=== PATIENT | female | born 1945 | race Caucasian/White ===

== ENCOUNTER 2018-12-20 10:02 | Outpatient (CLI) | payer MEDICARE, MEDICAID | END 2018-12-20 10:03 | disposition home or self-care (01) | LOC: RAD 10:02 ==

== ENCOUNTER → 2019-01-04 | Outpatient (CLI) | payer MEDICARE, MEDICAID | LOC: RAD 10:54 ==

== ENCOUNTER 2019-03-20 09:55 | Observation (INO) | payer MEDICARE, MEDICAID ==
--- NOTE | 2019-03-20 10:47 | ED PDOC ---
Arrival/HPI - General Historian: Patient - History of Present Illness Narrative History of Present Illness (Text): 03/20/19 10:43 CC: chest pain HPI: 73 yo female w/ PMH of HTN and Lupus comes to ED for evaluation of chest pain, dizziness, and left arm weakness. Patient states that when she awoke today she thought her blood pressure was high. Patient never checked but thought her blood pressure was high. Soon after patient became dizzy and had some arm left arm weakness. Patient states she had 1 episode in the past for which she went to the ED but was discharged. Patient states at this point her arm numbness and dizziness has resolved but still remains with chest pressure. Patient states she only took her home medications. Patient describes the pain as a pressure, loca link on top left of anterior chest wall, constant in nature. Denies fevers, chills, chest pain, sob, n/v, constipation or diarrhea, dysuria, dizziness, lightheadedness, diaphoresis. Time/Duration: 4-6 hours Symptom Onset: Sudden Symptom Course: Improving Quality: Pressure Severity Level: 5 Activities at Onset: Rest Context: Sitting <Melony Thao - Last Filed: 03/20/19 12:24> <Osvaldo James - Last Filed: 03/20/19 12:32> - General Chief Complaint: Chest Pain Time Seen by Provider: 03/20/19 10:12 Past Medical History - Provider Review Nursing Documentation Reviewed: Yes - Infectious Disease Hx of Infectious Diseases: None - Reproductive Menopause: Yes - Cardiac Hx Cardiac Disorders: Yes Hx Hypertension: Yes - Pulmonary Hx Respiratory Disorders: No - HEENT Hx HEENT Disorder: Yes Hx Cataracts: Yes - Endocrine/Metabolic Hx Endocrine Disorders: Yes Hx Systemic Lupus Erythematosus: Yes - Musculoskeletal/Rheumatological Hx Musculoskeletal Disorders: Yes Hx Osteoarthritis: Yes - Psychiatric Hx Substance Use: No - Surgical History Hx Cataract Extraction: Yes (LEFT EYE) Other/Comment: myomectomy - Anesthesia Hx Anesthesia: Yes Hx Anesthesia Reactions: No Hx Malignant Hyperthermia: No <Melony Thao - Last Filed: 03/20/19 12:24> Family/Social History Family/Social History: Hypertension Smoking Status: Never Smoked Hx Alcohol Use: No Hx Substance Use: No <MasterMadaser - Last Filed: 03/20/19 12:24> Allergies/Home Meds <Melony Thao - Last Filed: 03/20/19 12:24> <Osvaldo James - Last Filed: 03/20/19 12:32> Allergies/Adverse Reactions: Allergies No Known Allergies Allergy (Verified 03/07/16 10:37) Home Medications: Home Meds Medication Instructions Recorded Confirmed Diclofenac Sodium 75 mg PO DAILY 03/07/16 03/16/16 Review of Systems - Review of Systems Constitutional: Normal. absent: Fatigue, Weight Change, Fevers Eyes: Normal. absent: Vision Changes, Photophobia, Eye Pain ENT: Normal. absent: Hearing Changes, Tinnitus, TMJ Pain Respiratory: Normal. absent: SOB Cardiovascular: Chest Pain. absent: Normal, Palpitations, Edema Gastrointestinal: Normal. absent: Abdominal Pain, Stool Changes, Constipation, Diarrhea, Nausea, Vomiting Genitourinary Female: Normal. absent: Dysuria, Frequency, Hematuria Musculoskeletal: Normal. absent: Arthralgias, Back Pain, Neck Pain Skin: Normal. absent: Rash, Pruritis, Skin Lesions Neurological: Normal. absent: Headache, Dizziness, Focal Weakness Endocrine: Normal. absent: Diaphoresis, Polyuria, Polydipsia Hemo/Lymphatic: Normal. absent: Adenopathy, Easy Bleeding Psychiatric: Normal. absent: Anxiety, Depression <Melony Thao - Last Filed: 03/20/19 12:24> Physical Exam Vital Signs Reviewed: Yes Vital Signs Temp Pulse Pulse Resp BP Pulse Ox 03/20/19 10:16 87 03/20/19 10:10 98.3 F 90 20 144/69 100 03/20/19 10:04 98.3 F 89 20 144/69 100 Temperature: Afebrile Blood Pressure: Normal Pulse: Regular Respiratory Rate: Normal Appearance: Positive for: Well-Appearing, Non-Toxic, Comfortable Pain Distress: None Mental Status: Positive for: Alert and Oriented X 3 - Systems Exam Head: Present: Atraumatic, Normocephalic Pupils: Present: PERRL Extroacular Muscles: Present: EOMI Mouth: Present: Moist Mucous Membranes Neck: Present: Normal Range of Motion. No: Meningeal Signs, JVD Respiratory/Chest: Present: Clear to Auscultation, Good Air Exchange. No: Respiratory Distress, Accessory Muscle Use Cardiovascular: Present: Regular Rate and Rhythm, Normal S1, S2. No: Murmurs, Tachycardic Abdomen: Present: Normal Bowel Sounds. No: Tenderness, Distention, Peritoneal Signs Upper Extremity: Present: Normal Inspection. No: Cyanosis, Edema Lower Extremity: Present: Normal Inspection. No: Edema Neurological: Present: GCS=15, CN II-XII Intact, Speech Normal Skin: Present: Warm, Dry, Normal Color. No: Rashes Psychiatric: Present: Alert, Oriented x 3, Normal Insight, Normal Concentration <MasterMelony schmidt - Last Filed: 03/20/19 12:24> Vital Signs Temp Pulse Pulse Resp BP Pulse Ox 03/20/19 10:16 87 03/20/19 10:10 98.3 F 90 20 144/69 100 03/20/19 10:04 98.3 F 89 20 144/69 100 <NakiaicoOsvaldo - Last Filed: 03/20/19 12:32> Medical Decision Making ED Course and Treatment: 03/20/19 10:50 Impression 73 yo female w/ PMH of HTN and Lupus comes to ED for evaluation of chest pain, dizziness, and left arm weakness. Plan -CBC -CMP -Troponin -EKG -CXR -Aspirin Prior Visits Prior documentation and lab work reviewed prior to evaluation Progress Notes will re-evaluate patient after lab work results 03/20/19 11:59 lab work reviewed, negative troponin Heart Score: 3 points - Risk of Major Cardiac Event : 0.9-1.7% 03/20/19 12:24 Spoke with Hospitalist, Dr. Baker, who has agreed to accept the patient. Requested CT head. Re-evaluation Time: 12:24 Reassessment Condition: Re-examined, Improved - Lab Interpretations Lab Results: 03/20/19 11:05 03/20/19 11:05 Lab Results 03/20/19 11:05: Sodium 138, Potassium 4.1, Chloride 108 H, Carbon Dioxide 25, Anion Gap 10, BUN 13, Creatinine 0.9, Est GFR ( Amer) > 60, Est GFR (Non- Af Amer) > 60, Random Glucose 88, Calcium 9.3, Total Bilirubin 0.5, AST 31, ALT 20, Alkaline Phosphatase 92, Troponin I < 0.01, Total Protein 7.9, Albumin 3.8, Globulin 4.1, Albumin/Globulin Ratio 0.9 L 03/20/19 11:05: WBC 9.0, RBC 4.25, Hgb 12.7, Hct 38.5, MCV 90.6, MCH 29.9, MCHC 33.0, RDW 13.4, Plt Count 218, MPV 11.3 H, Neut % (Auto) 83.2 H, Lymph % (Auto) 11.8 L, [place] % (Auto) 4.5, Eos % (Auto) 0.3 L, Baso % (Auto) 0.2, Lymph # (Auto) 1.1 L, [place] # (Auto) 0.4, Eos # (Auto) 0.0, Baso # (Auto) 0.02, Absolute Neuts (auto) 7.46 H I have reviewed the lab results: Yes Interpretation: All labs normal - RAD Interpretation Radiology Orders: 03/20/19 10:37 CHEST PORTABLE [RAD] Stat - EKG Interpretation EKG Interpretation (Text): 03/20/19 12:25 EKG: NSR, Normal EKG Interpreted by ED Physician: Yes Type: 12 lead EKG - Medication Orders Current Medication Orders: Discontinued Medications Aspirin (Aspirin) 325 mg PO STAT STA Stop: 03/20/19 10:38 <Melony Thao - Last Filed: 03/20/19 12:24> ED Course and Treatment: 03/20/19 11:17 Seen and examined with the resident. 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 Chest pain dizziness and left upper extremity pain for 2 days intermittently. - RAD Interpretation Radiology Orders: 03/20/19 10:37 CHEST PORTABLE [RAD] Stat - Medication Orders Current Medication Orders: Discontinued Medications Aspirin (Aspirin) 325 mg PO STAT STA Stop: 03/20/19 10:38 Last Admin: 03/20/19 10:52 Dose: 325 mg <Osvaldo James - Last Filed: 03/20/19 12:32> Disposition/Present on Arrival - Present on Arrival Any Indicators Present on Arrival: No History of DVT/PE: No History of Uncontrolled Diabetes: No Urinary Catheter: No History of Decub. Ulcer: No History Surgical Site Infection Following: None - Disposition Have Diagnosis and Disposition been Completed?: Yes Disposition Time: 12:26 Patient Plan: Observation <Melony Thao - Last Filed: 03/20/19 12:24> - Present on Arrival Any Indicators Present on Arrival: No History of DVT/PE: No History of Uncontrolled Diabetes: No Urinary Catheter: No History of Decub. Ulcer: No - Disposition Have Diagnosis and Disposition been Completed?: Yes Patient Plan: Observation <Osvaldo James - Last Filed: 03/20/19 12:32> - Disposition Diagnosis: Chest pain Disposition: HOSPITALIZED Patient Problems: Current Active Problems Problem Status Onset Chest pain Acute Condition: GOOD
[2019-03-20 11:28] LABS: BASO # 0.02 K/mm3 (0.0-2.0); BASO % 0.2 % (0.0-3.0); EOS % 0.3 % (1.5-5.0); HEMOGLOBIN 12.7 g/dL (12.0-16.0); LYMPH # 1.1 (1.2-3.4); LYMPH % 11.8 % (22.0-35.0); MEAN CELL VOLUME 90.6 fl (80.0-105.0); MEAN CORPUSCULAR HEMOGLOBIN 29.9 pg (25.0-35.0); MEAN PLATELET VOLUME 11.3 fl (7.0-11.0); MONO # 0.4 (0.1-0.6); MONO % 4.5 % (1.0-6.0); RBC 4.25 10^6/uL (3.5-6.1); RED CELL DISTRIBUTION WIDTH 13.4 % (11.5-14.5)
[2019-03-20 11:41] LABS: ALB/GLOB RATIO 0.9 (1.1-1.8); ALBUMIN 3.8 g/dL (3.0-4.8); ALT/SGPT 20 U/L (7-56); AST/SGOT 31 U/L (14-36); BLOOD UREA NITROGEN 13 mg/dL (7-21); CALCIUM 9.3 mg/dL (8.4-10.5); GFR NON-AFRICAN AMERICAN > 60
[2019-03-20 11:51] LABS: TROPONIN I < 0.01 ng/mL
--- NOTE | 2019-03-20 13:00 | CT ---
Date of service: 03/20/2019 PROCEDURE: CT HEAD WITHOUT CONTRAST. HISTORY: left arm weakness COMPARISON: None available. TECHNIQUE: Axial computed tomography images were obtained through the head/brain without intravenous contrast. Supplemental Coronal and Sagittal projections created and reviewed. Radiation dose: Total exam DLP = 702.08 mGy-cm. This CT exam was performed using one or more of the following dose reduction techniques: Automated exposure control, adjustment of the mA and/or kV according to patient size, and/or use of iterative reconstruction technique. FINDINGS: HEMORRHAGE: No intracranial hemorrhage. BRAIN: No mass effect or edema. No atrophy or chronic microvascular ischemic changes. VENTRICLES: Unremarkable. No hydrocephalus. CALVARIUM: Lytic lesions within the calvarium. Is there a clinical history of primary neoplasm or myeloma? PARANASAL SINUSES: Unremarkable as visualized. No significant inflammatory changes. MASTOID AIR CELLS: Unremarkable as visualized. No inflammatory changes. OTHER FINDINGS: None. IMPRESSION: No acute intracranial abnormalities. No significant findings to account for the clinical presentation. Lytic calvarial lesions/lucencies. Metastatic disease, myeloma should be considered.
--- NOTE | 2019-03-20 14:03 | CP.PCM.HP ---
<Pedro Quigley - Last Filed: 03/20/19 13:58> History of Present Illness - History of Present Illness History of Present Illness: 73 year old greenlandic-speaking female with past medical history of SLE and HTN presents to the hospital for chest discomfort/pain for the past 5 hours. Patient states she has never had this before. Pain is described as a pressure that radiates to her left arm. It has been intermittent since this morning. There are no exacerbating/alleviating factors. Patient also admits to having a headache and left arm weakness earlier in the day, which has now resolved. Patient is compliant with her medications. Patient denies shortness of breath, nausea, vomiting, diarrhea, fever, chills, numbness, tingling, changes in vision/speech, dysuria. Medical Hx: As above Surgical Hx: Denies Family Hx: HTN Social Hx: Denies alcohol, tobacco, or illicit drug use Allergies: ASA Medications: Hydroxychloroquine, Lisinopril PMD: Dr. Amanda Present on Admission - Present on Admission Any Indicators Present on Admission: No Review of Systems - Review of Systems Review of Systems: 12 point ROS as per HPI, otherwise negative Past Patient History - Infectious Disease Hx of Infectious Diseases: None - Past Medical History & Family History Past Medical History?: Yes - Past Social History Smoking Status: Never Smoked - CARDIAC Hx Cardiac Disorders: Yes Hx Hypertension: Yes - PULMONARY Hx Respiratory Disorders: No - HEENT Hx HEENT Problems: Yes Hx Cataracts: Yes - ENDOCRINE/METABOLIC Hx Endocrine Disorders: Yes Hx Systemic Lupus Erythematosus: Yes - MUSCULOSKELETAL/RHEUMATOLOGICAL Hx Musculoskeletal Disorders: Yes Hx Osteoarthritis: Yes - PSYCHIATRIC Hx Substance Use: No - SURGICAL HISTORY Hx Cataract Extraction: Yes (LEFT EYE) Other/Comment: myomectomy - ANESTHESIA Hx Anesthesia: Yes Hx Anesthesia Reactions: No Hx Malignant Hyperthermia: No Meds Allergies/Adverse Reactions: Allergies Allergy/AdvReac Type Severity Reaction Status Date / Time aspirin Allergy PAIN Verified 03/20/19 16:01 Physical Exam - Constitutional Appears: Non-toxic, No Acute Distress - Head Exam Head Exam: ATRAUMATIC, NORMAL INSPECTION, NORMOCEPHALIC - Eye Exam Eye Exam: EOMI, Normal appearance. absent: Conjunctival injection, Scleral icterus - ENT Exam ENT Exam: Mucous Membranes Moist, Normal Exam - Respiratory Exam Respiratory Exam: Clear to Auscultation Bilateral, NORMAL BREATHING PATTERN. absent: Rales, Rhonchi, Wheezes - Cardiovascular Exam Cardiovascular Exam: RRR, +S1, +S2. absent: Gallop, Rubs, Systolic Murmur - GI/Abdominal Exam GI & Abdominal Exam: Normal Bowel Sounds, Soft. absent: Tenderness - Extremities Exam Extremities exam: Positive for: normal inspection. Negative for: pedal edema, tenderness - Neurological Exam Neurological exam: Alert, CN II-XII Intact, Oriented x3 - Psychiatric Exam Psychiatric exam: Normal Affect, Normal Mood - Skin Skin Exam: Dry, Intact, Normal Color, Warm Results - Vital Signs Recent Vital Signs: Last Vital Signs Temp 98.3 F 03/20/19 10:10 Pulse 87 03/20/19 10:16 Resp 20 03/20/19 10:10 BP 144/69 03/20/19 10:10 Pulse Ox 100 03/20/19 10:10 - Labs Result Diagrams: 03/20/19 11:05 03/20/19 11:05 Labs: Laboratory Results - last 24 hr 03/20/19 03/20/19 11:05 11:05 WBC 9.0 RBC 4.25 Hgb 12.7 Hct 38.5 MCV 90.6 MCH 29.9 MCHC 33.0 RDW 13.4 Plt Count 218 MPV 11.3 H Neut % (Auto) 83.2 H Lymph % (Auto) 11.8 L [place] % (Auto) 4.5 Eos % (Auto) 0.3 L Baso % (Auto) 0.2 Lymph # (Auto) 1.1 L [place] # (Auto) 0.4 Eos # (Auto) 0.0 Baso # (Auto) 0.02 Absolute Neuts (auto) 7.46 H Sodium 138 Potassium 4.1 Chloride 108 H Carbon Dioxide 25 Anion Gap 10 BUN 13 Creatinine 0.9 Est GFR ( Amer) > 60 Est GFR (Non-Af Amer) > 60 Random Glucose 88 Calcium 9.3 Total Bilirubin 0.5 AST 31 ALT 20 Alkaline Phosphatase 92 Troponin I < 0.01 Total Protein 7.9 Albumin 3.8 Globulin 4.1 Albumin/Globulin Ratio 0.9 L Assessment & Plan - Assessment and Plan (Free Text) Plan: 73 year old female with past medical history of SLE and HTN presents with chest pain and left arm weakness. EKG shows NSR. Head CT shows calvarian lytic lesi ons. Patient will be seen by cardiology and have Brain MRI. Chest pain Trend troponins, negative x1 Lipid panel, HgA1c, TSH Plavix for tomorrow as patient is allergic to ASA Echo ordered Cardiology consulted, Dr. Kirk Gill lytic lesions Follow up Brain MRI HTN Continue Lisinopril SLE Continue Hydroxychloroquine PPX Pepcid SCDs Bhagwandin, PGY-3 <Jitendra Baker - Last Filed: 03/22/19 15:17> Results - Vital Signs Recent Vital Signs: Last Vital Signs Temp 97.5 F L 03/21/19 12:00 Pulse 76 03/21/19 14:00 Resp 16 03/21/19 12:00 BP 115/70 03/21/19 12:00 Pulse Ox 98 03/21/19 06:00 - Labs Result Diagrams: 03/21/19 07:00 03/21/19 07:00 Attending/Attestation - Attestation I have personally seen and examined this patient.: Yes I have fully participated in the care of the patient.: Yes I have reviewed all pertinent clinical information: Yes Notes (Text): 03/22/19 15:17 Medical record note made by the resident after discussion with my direction and input after the patient was personally seen and examined by me. I have reviewed the chart and agree that the record accurately reflects by personal performance of the history, physical exam, data review, and medical decision-making, in the course for the patient. I have also personally directed the plan of care.
--- NOTE | 2019-03-20 14:16 | RAD ---
Date of service: 03/20/2019 HISTORY: Chest pain. COMPARISON: No prior. FINDINGS: LUNGS: Patchy multifocal infiltrates accentuated by portable technique and poor inspiratory effort. PLEURA: No significant pleural effusion identified, no pneumothorax apparent. CARDIOVASCULAR: No atherosclerotic calcification present Normal. OSSEOUS STRUCTURES: No significant abnormalities. VISUALIZED UPPER ABDOMEN: Normal. OTHER FINDINGS: None. IMPRESSION: Bilateral lower lobe infiltrates.
[2019-03-20 16:24] VITALS: BMI 24.4
[2019-03-20] MEDS ORDERED: Pneumococcal 23-Valent Vaccine IM ONE (16:24)
--- NOTE | 2019-03-20 17:28 | MRI ---
Date of service: 03/20/2019 PROCEDURE: MRI BRAIN WITHOUT CONTRAST HISTORY: Abnormal head CT scan. COMPARISON: None available. TECHNIQUE: Multiplanar, multisequence MR images of the brain were obtained without intravenous contrast enhancement. FINDINGS: HEMORRHAGE: No acute parenchymal, subarachnoid nor extra-axial hemorrhage. No evidence of hemosiderin deposition identified on gradient echo weighted sequence. DWI: No evidence of an acute or early subacute infarction seen on diffusion imaging.. BRAIN PARENCHYMA: There is a small focal area of increased T2 signal left stephen frontal horn white matter that probably represents minor chronic sequela of small-vessel disease.. There may also be a few additional tiny focal areas of increased T2 signal left cerebral hemisphere nonspecific although possibly representing tiny chronic lacunar-type infarct Mild age-appropriate volume loss. VENTRICLES: No obstructive hydrocephalus. CRANIUM: Previously noted multiple calvarial lucencies appears somewhat serpiginous and may represent vascular grooves and venous lakes. Follow-up limited pre and post-contrast T1 fat-suppressed sequences of the brain recommended if further evaluation is required alternately. Bone scan would not be effective for excluding myeloma however would be helpful to exclude metastatic disease. ORBITS: Changes of bilateral cataract surgery present. PARANASAL SINUSES/MASTOIDS: Changes of bilateral cataract VASCULAR SYSTEM: Visualized major vascular flow voids at skull base patent. OTHER FINDINGS: None. IMPRESSION: No evidence of acute intracranial hemorrhage or infarct. Small focal area of increased T2 signal left stephen frontal horn white matter that probably represents minor chronic sequela of small-vessel disease.. There may also be a few additional tiny focal areas of increased T2 signal left cerebral hemisphere nonspecific although possibly representing tiny chronic lacunar-type infarct Previously noted multiple calvarial lucencies the superior serpiginous and may represent vascular grooves and venous lakes. Follow-up limited pre and post-contrast T1 fat-suppressed sequences of the brain recommended if further evaluation is required alternately. Bone scan would not be effective for excluding myeloma however would be helpful to exclude metastatic disease. Mild age-appropriate volume loss.
[2019-03-20 18:42] LABS: HDL CHOLESTEROL 41 mg/dL (29-60)
[2019-03-20 18:53] LABS: LDL CHOLESTEROL 84 mg/dL (0-129)
[2019-03-20 18:54] LABS: TROPONIN I < 0.01 ng/mL
--- NOTE | 2019-03-20 20:36 | CARD ---
APPROVED REPORT Date of service: 03/20/2019 EKG Measurement Heart [id number] <Conclusion> Normal sinus rhythm Normal ECG
[2019-03-21 06:45] VITALS: O2SAT 98
[2019-03-21 07:16] LABS: HEMOGLOBIN 12.8 g/dL (12.0-16.0); MEAN CELL VOLUME 90.6 fl (80.0-105.0); MEAN CORPUSCULAR HGB CONC 33.2 g/dl (31.0-37.0); MEAN PLATELET VOLUME 11.2 fl (7.0-11.0); RBC 4.26 10^6/uL (3.5-6.1); RED CELL DISTRIBUTION WIDTH 13.5 % (11.5-14.5); WHITE BLOOD COUNT 4.9 10^3/uL (4.5-11.0)
[2019-03-21 07:31] LABS: ALB/GLOB RATIO 0.9 (1.1-1.8); ALBUMIN 3.6 g/dL (3.0-4.8); ALT/SGPT 18 U/L (7-56); AST/SGOT 32 U/L (14-36); BLOOD UREA NITROGEN 14 mg/dL (7-21); CALCIUM 9.2 mg/dL (8.4-10.5); GFR NON-AFRICAN AMERICAN > 60
[2019-03-21 07:37] LABS: TROPONIN I < 0.01 ng/mL
--- NOTE | 2019-03-21 10:26 | CON ---
DATE OF CONSULTATION: 03/21/2019 CARDIOLOGY CONSULTATION HISTORY: The patient is a 73-year-old woman with history of hypertension and lupus erythematosus, who presents with chest pressure. The symptoms have now resolved. The patient is free of cardiac disease in the past. She denies diabetes mellitus, no history of hypercholesterolemia, no previous cardiac history. SOCIAL HISTORY: The patient does not smoke. REVIEW OF SYSTEMS: Fourteen-point review of systems is reviewed in detail. Other than the chest pressure, there are no other cardiac symptoms. PHYSICAL EXAMINATION: VITAL SIGNS: Blood pressure 117/76, the heart rate is in the 60s, normal sinus rhythm. NECK: Negative JVD. LUNGS: Without rales. CARDIAC: Heart rate S1, S2. EXTREMITIES: Without edema. LABORATORY DATA: Hemoglobin is 12.8. Chemistries, BUN and creatinine are unremarkable. Troponins are negative x3. Preliminary echocardiogram reveals good LV function without aortic stenosis. IMPRESSION: 1. Transient chest pressure. 2. No evidence for acute coronary syndrome. 3. History of hypertension. 4. History of lupus erythematosus. PLAN: Given these findings, given that there is no evidence for acute coronary syndrome. We will DC telemetry today. We will arrange for an outpatient stress test. Roscoe Bradley MD
[2019-03-21 12:15] VITALS: BP 115/70; RESP 16; TEMP 97.5
--- NOTE | 2019-03-21 13:21 | CT ---
Date of service: 03/21/2019 PROCEDURE: CT Chest, Abdomen and Pelvis without intravenous contrast HISTORY: rule out neoplasm COMPARISON: None available. TECHNIQUE: Radiation dose: Total exam DLP = 393.3 mGy-cm. This CT exam was performed using one or more of the following dose reduction techniques: Automated exposure control, adjustment of the mA and/or kV according to patient size, and/or use of iterative reconstruction technique. FINDINGS: CT CHEST WITHOUT CONTRAST: LUNGS: No consolidation. There is heterogeneous but extensive ground-glass opacity in the right upper lobe, predominantly posterior segment, and in the right lower lobe and in the superior segment left lower lobe. The left upper lobe appears spared. MEDIASTINUM: Unremarkable. Normal caliber aorta and pulmonary arterial trunk. Normal size heart. LYMPH NODES: Unremarkable. PLEURA: Unremarkable. No pneumothorax. No pleural fluid. BONES: Unremarkable. OTHER FINDINGS: None. CT ABDOMEN AND PELVIS: LIVER: Normal size, contour and attenuation. There is a incomplete curvilinear calcification in the right lobe of the liver measuring approximately 12 mm in diameter. The possibility of calcified high dated cyst should be considered. No other hepatic mass is identified. There is no biliary ductal dilatation. GALLBLADDER AND BILE DUCTS: Unremarkable. PANCREAS: Unremarkable. No gross lesion or ductal dilatation. SPLEEN: Unremarkable. ADRENALS: Unremarkable. No mass. KIDNEYS AND URETERS: Unremarkable. No hydronephrosis. No solid mass. VASCULATURE: There is atherosclerotic calcification of the abdominal aorta. Unremarkable. No aortic aneurysm. BOWEL: Unremarkable. No obstruction. No gross mural thickening. APPENDIX: Normal appendix. PERITONEUM: Unremarkable. No free fluid. No free air. LYMPH NODES: Unremarkable. No enlarged lymph nodes. BLADDER: Unremarkable. REPRODUCTIVE: Normal uterus BONES: No acute fracture. OTHER FINDINGS: None. IMPRESSION: Ground-glass opacity in the right upper lobe and right lower lobe as well as superior segment left lower lobe. Possible infectious etiology. Nonspecific curvilinear calcification noted in the right hepatic lobe. Consider the possibility of calcified head added cyst. No other significant abnormality is identified.
[2019-03-21 16:43] VITALS: PULSE 76
--- NOTE | 2019-03-21 17:19 | CARD ---
APPROVED REPORT Date of service: 03/21/2019 EXAM: Two-dimensional and M-mode echocardiogram with Doppler and color Doppler. INDICATION LVFX 2D DIMENSIONS Left Atrium (2D)3.9 (1.6-4.0cm)IVSd0.8 (0.7-1.1cm) LVDd4.0 (3.9-5.9cm)PWd0.9 (0.7-1.1cm) LVDs2.6 (2.5-4.0cm)FS (%) 34.6 % LVEF (%)64.3 (>50%) M-Mode DIMENSIONS Aortic Root3.00 (2.2-3.7cm)Aortic Cusp Exc.1.60 (1.5-2.0cm) Aortic Valve AoV Peak Dxrdlkqv457.0cm/Radha Peak GR.11mmHgAI P 1/2 [id number] Mitral Valve MV E Ghwflpli42.9cm/sMV A Umojkwgh097.0cm/sE/A ratio0.8 TDI Lateral E' Peak V11.90cm/sMedial E' Peak V6.73cm/sE/Lateral E'7.1 E/Medial E'12.5 Pulmonary Valve PV Peak Bxhaktxq91.8cm/sPV Peak Grad.2mmHg Tricuspid Valve TR Peak Uxijfdiy035ct/sRAP [id number] Peak Gr.43mmHg [id number] LEFT VENTRICLE The left ventricle is normal size. There is normal left ventricular wall thickness. The left ventricular function is normal. The left ventricular ejection fraction is within the normal range. There is normal LV segmental wall motion. Transmitral Doppler flow pattern is Grade I-abnormal relaxation pattern. RIGHT VENTRICLE The right ventricle is normal size. There is normal right ventricular wall thickness. The right ventricular systolic function is normal. ATRIA The left atrium size is normal. The right atrium size is normal. AORTIC VALVE The aortic valve is mildly thickened. There is mild aortic regurgitation. There is no aortic valvular stenosis. MITRAL VALVE The mitral valve is mildly thickened. Mitral regurgitation is mild. There is no mitral valve stenosis. TRICUSPID VALVE The tricuspid valve is normal in structure. There is moderate tricuspid regurgitation. There is moderate pulmonary hypertension. PULMONIC VALVE The pulmonary valve is normal in structure. There is no pulmonic valvular regurgitation. GREAT VESSELS The aortic root is normal in size. The IVC is normal in size and collapses >50% with inspiration. PERICARDIAL EFFUSION There is no pericardial effusion. <Conclusion> There is normal left ventricular wall thickness. The left ventricular function is normal. The left ventricular ejection fraction is within the normal range. There is normal LV segmental wall motion. Transmitral Doppler flow pattern is Grade I-abnormal relaxation pattern. There is mild aortic regurgitation. Mitral regurgitation is mild. There is moderate tricuspid regurgitation. There is moderate pulmonary hypertension.
== END 2019-03-21 17:31 | disposition home or self-care (01) ==
LOC: ED 09:55 → ERH 12:22 → 2RSO 17:20
PROVIDERS: ADMIT Internal Medicine; ATTEND Internal Medicine
DX: R07.89 Other chest pain (principal); I10 Essential (primary) hypertension; M32.9 Systemic lupus erythematosus, unspecified; R53.1 Weakness; Z88.6 Allergy status to analgesic agent
CPT/HCPCS: 36415; 70450; 70551; 71045; 71250; 74176; 80053; 80061; 83036; 83735; 84100; 84443; 84484; 85025; 85027; 93005; 93306; 99285; G0378